=== PATIENT | female | born 1955 | race Caucasian/White ===

== ENCOUNTER 2022-05-16 13:56 | Outpatient (CLI) | payer BC ==
[2022-05-16 15:00] LABS: #Basophils 0.1 10x3/uL (0.0-0.2); #Eosinphils 0.1 10x3/uL (0.0-0.5); #Monocytes 0.4 10x3/uL (0.0-1.1); #Neutrophils 4.5 10x3/uL (1.5-8.4); %Basophils 0.8 % (0.0-2.0); %Eosinophils 1.3 % (0.0-6.0); %Lymphocytes 19.9 % (18.0-47.0); %Monocytes 6.2 % (0.0-10.0); %Neutrophils 71.5 % (40.0-75.0); Hemoglobin 12.9 g/dL (12.0-15.5); Mean Corpuscular HGB CONC 32.9 g/dL (32.0-36.0); Mean Corpuscular Hemoglobin 30.1 pg (27.0-33.0); Mean Corpuscular Volume 91.4 fl (81.6-98.3); Mean Platelet Volume 9.8 fl (7.4-10.4); Platelet Count 201 10x3/uL (150-450); RBC Distribution Width 13.7 % (11.5-14.5); Red Blood Cell (RBC) Count 4.29 10x6/uL (3.90-5.03); White Blood Cell (WBC) Count 6.3 10x3/uL (3.5-10.5)
[2022-05-16 15:11] LABS: Anion Gap 15 mmol/L (10-20); BUN (Urea Nitrogen) 33 mg/dL (9.8-20.1); Calc. Creatinine Clearance 0 mL/min (70-130); Calcium 9.1 mg/dL (7.8-10.44); Carbon Dioxide 26 mmol/L (23-31); Chloride 105 mmol/L (98-107); Estimated GFR 90; Glucose 105 mg/dL (80-115); Potassium 3.7 mmol/L (3.5-5.1); Sodium 142 mmol/L (136-145)
== END 2022-05-16 13:57 | disposition home or self-care (01) ==
LOC: LABBT 13:56
PROVIDERS: ATTEND Specialist
DX: Z01.818 Encounter for other preprocedural examination (principal); K43.9 Ventral hernia without obstruction or gangrene
CPT/HCPCS: 80048; 85025; 93005; 93010

== ENCOUNTER 2022-05-22 06:40 | Day surgery (SDC) | payer BC ==
[2022-05-20 13:48] VITALS: BMI 24.6
[2022-05-22] MEDS ORDERED: Sodium Chloride 0.9% 100 ML ONE (06:54)
[2022-05-22] MEDS ORDERED: CEFAZOLIN 2 GM VIAL ONE (06:54)
[2022-05-22] MEDS ORDERED: Acetaminophen 500 MG TAB ONE (06:55)
[2022-05-22] MEDS ORDERED: Heparin 5,000 UNITS/ML VIAL ONE (06:56)
[2022-05-22] MEDS ORDERED: fentaNYL PF 100 MCG/2 ML SYRINGE ONE (06:59)
[2022-05-22] MEDS ORDERED: HYDROmorphone 0.5 MG/0.5 ML SYRINGE ONE ×2 (06:59→13:42)
[2022-05-22] MEDS ORDERED: Lidocaine 1% MPF 2 ML VIAL ONE (07:00)
[2022-05-22] MEDS ORDERED: SUGAMMADEX SODIUM 200 MG/2 ML VIAL ONE (07:00)
[2022-05-22] MEDS ORDERED: Gentamicin 80 MG/2 ML VIAL ONE (07:01)
[2022-05-22] MEDS ORDERED: Vancomycin 1 GM VIAL ONE (07:01)
[2022-05-22] MEDS ORDERED: Bupivacaine/Epinephrine 0.25% 30 ML VIAL ONE (07:02)
[2022-05-22] MEDS ORDERED: Ketorolac Tromethamine 30 MG/ML VIAL ONE (08:29)
[2022-05-22] MEDS ORDERED: Midazolam HCl 2 mg/2 ml Vial ONE (08:29)
[2022-05-22] MEDS ORDERED: Ondansetron PF 4 MG/2 ML Vial ONE (08:35)
[2022-05-22] MEDS ORDERED: Dexamethasone 20 MG/5 ML VIAL ONE (08:35)
[2022-05-22] MEDS ORDERED: ePHEDrine 50 MG/ML VIAL ONE (08:35)
[2022-05-22] MEDS ORDERED: Rocuronium Bromide 10 MG/ML (10ML VIAL) ONE (08:35)
[2022-05-22] MEDS ORDERED: PROPOFOL 200 MG/20 ML VIAL ONE (08:35)
[2022-05-22] MEDS ORDERED: Lidocaine 1% PF 5 ML VIAL ONE (08:35)
[2022-05-22] MEDS ORDERED: PHENYLEPHRINE-NS 100 MCG/ML 10 ML SYRINGE ONE (08:35)
[2022-05-22] MEDS ORDERED: EPINEPHrine 1 MG/ML AMP ONE (09:19)
[2022-05-22] MEDS ORDERED: Fentanyl 100 MCG/2 ML VIAL ONE (13:15)
[2022-05-22] MEDS ORDERED: HYDROcodone/Acetaminophen 5/325 mg Tablet ONE (14:34)
== END 2022-05-22 15:53 | disposition home or self-care (01) ==
LOC: SDC 06:40
PROVIDERS: ATTEND Specialist
PROC: 8E0W4CZ Robotic Assisted Procedure of Trunk Region, Percutaneous Endoscopic Approach (ICD-10-PCS; principal; 2022-05-22)
PROC: 0WUF4JZ Supplement Abdominal Wall with Synthetic Substitute, Percutaneous Endoscopic Approach (ICD-10-PCS; principal; 2022-05-22)
PROC: 0JB80ZZ Excision of Abdomen Subcutaneous Tissue and Fascia, Open Approach (ICD-10-PCS; principal; 2022-05-22)
DX: K43.0 Incisional hernia with obstruction, without gangrene (principal); L98.7 Excessive and redundant skin and subcutaneous tissue; K66.0 Peritoneal adhesions (postprocedural) (postinfection); I10 Essential (primary) hypertension; Z79.890 Hormone replacement therapy; Z79.899 Other long term (current) drug therapy; Z91.040 Latex allergy status; Z98.890 Other specified postprocedural states
CPT/HCPCS: C1781; J0171; J1100; J1170; J1580; J1644; J1885; J2250; J2405; J2704; J3010; J3370; J3490